=== PATIENT | male | born 1990 | race American Indian/Alaskan Native ===

== ENCOUNTER 2018-11-03 19:18 | Emergency (ER) | payer SELFPAY ==
--- NOTE | 2018-11-03 19:59 | Event Note ---
ED Screening Note Date of service: 11/03/18 Time: 19:55 ED Screening Note: This is a 28 y.o. M. that presents to the ER with pain and intermittent swelling to left ankle. Reports history of fx repair to left ankle in 2005. PMH of HTN no medication. Denies visual changes, palpitations, chest pain, or dizziness. This initial assessment/diagnostic orders/clinical plan/treatment(s) is/are subject to change based on patients health status, clinical progression and re- assessment by fellow clinical providers in the ED. Further treatment and workup at subsequent clinical providers discretion. Patient/guardian urged not to elope from the ED as their condition may be serious if not clinically assessed and managed. Initial orders include: XR left ankle
--- NOTE | 2018-11-03 21:22 | XRay Report ---
LEFT ANKLE 3 VIEWS INDICATION / CLINICAL INFORMATION: Lateral left ankle pain and swelling. COMPARISON: None available. FINDINGS: BONES and JOINT(S): No acute fracture or subluxation. No significant arthritis. Internal fixation of the distal fibula and tibia appears intact and in good position. SOFT TISSUES: Moderate generalized edema is seen along the distal leg and ankle. ADDITIONAL FINDINGS: None. IMPRESSION: Moderate soft tissue swelling of the left ankle without an acute osseous abnormality. Signer Name: uYri Donald MD Signed: 11/03/2018 9:18 PM Workstation Name: [id number]
--- NOTE | 2018-11-03 21:51 | Emergency Department Report ---
ED Extremity Problem HPI - General Chief complaint: Extremity Injury, Lower Stated complaint: LEFT LEG PAIN Time Seen by Provider: 11/03/18 19:54 Source: patient Mode of arrival: Ambulatory Limitations: No Limitations - History of Present Illness Initial comments: Patient is a 28-year-old male who presents to emergency room with complaints of left ankle pain that began a couple weeks ago. States he has noticed some swelling after he is on his feet all day. he describes the pain as an "aching." Patient states that he had ankle fracture approximately 10 years ago and had a screw and plate placement. he denies any new fall or injury at all. Patient states that he works a lot and is constantly on his feet. Denies any numbness or weakness. He has not followed up with an orthopedic doctor. pt was concerned that a screw was out of place. - Related Data Previous Rx's Medication Instructions Recorded Last Taken Type Naproxen [Naprosyn] 500 mg PO BID PRN #20 tablet 11/03/18 Unknown Rx Allergies Allergy/AdvReac Type Severity Reaction Status Date / Time No Known Allergies Allergy Unverified 11/03/18 19:24 ED Review of Systems ROS: Stated complaint: LEFT LEG PAIN Other details as noted in HPI Comment: All other systems reviewed and negative ED Past Medical Hx - Past Medical History Previous Medical History?: Yes Hx Hypertension: Yes Additional medical history: Obesity - Surgical History Past Surgical History?: Yes Additional Surgical History: Left leg hardware - Social History Smoking Status: Never Smoker Substance Use Type: None - Medications Home Medications: Home Medications Medication Instructions Recorded Confirmed Last Taken Type Naproxen [Naprosyn] 500 mg PO BID PRN #20 tablet 11/03/18 Unknown Rx ED Physical Exam - General Limitations: No Limitations General appearance: alert, in no apparent distress - Head Head exam: Present: atraumatic, normocephalic - Eye Eye exam: Present: normal appearance - ENT ENT exam: Present: mucous membranes moist - Extremities Exam Extremities exam: Present: other (no TTP of the left ankle or foot, no obvious deformity, edema present around the ankle, 2+ distal pulses, sensation intact, no obvious joint laxity, FROM of the left ankle, foot, and toes) - Neurological Exam Neurological exam: Present: alert, oriented X3 - Psychiatric Psychiatric exam: Present: normal affect, normal mood - Skin Skin exam: Present: warm, dry, intact ED Course Vital Signs 11/03/18 11/03/18 19:24 21:30 Temperature 97.9 F Pulse Rate 98 H 91 H Respiratory 20 18 Rate Blood Pressure 220/117 Blood Pressure 198/112 [Left] O2 Sat by Pulse 96 98 Oximetry ED Medical Decision Making - Radiology Data Radiology results: report reviewed LEFT ANKLE 3 VIEWS INDICATION / CLINICAL INFORMATION: Lateral left ankle pain and swelling. COMPARISON: None available. FINDINGS: BONES and JOINT(S): No acute fracture or subluxation. No significant arthritis. Internal fixation of the distal fibula and tibia appears intact and in good position. SOFT TISSUES: Moderate generalized edema is seen along the distal leg and ankle. ADDITIONAL FINDINGS: None. IMPRESSION: Moderate soft tissue swelling of the left ankle without an acute osseous abnormality. Signer Name: Yuri Donald MD Signed: 11/03/2018 9:18 PM Workstation Name: [id number] Transcribed By: MARTHA Dictated By: Yuri Donald MD Electronically Authenticated By: Yuri Donald MD Signed Date/Time: 11/03/182117 - Medical Decision Making Patient is a 28-year-old male who presents to emergency room with complaints of left ankle pain that began a couple weeks ago. States he has noticed some swelling after he is on his feet all day. he describes the pain as an "aching." Patient states that he had ankle fracture approximately 10 years ago and had a screw and plate placement. he denies any new fall or injury at all. Patient states that he works a lot and is constantly on his feet. Denies any numbness or weakness. He has not followed up with an orthopedic doctor. pt was concerned that a screw was out of place. on exam: no TTP of the left ankle or foot, no obvious deformity, edema present around the ankle, 2+ distal pulses, sensation intact, no obvious joint laxity, FROM of the left ankle, foot, and toes. XR of the left ankle: Moderate soft tissue swelling of the left ankle without an acute osseous abnormality. Left ankle wrapped with Richy wrap. Given prescription for naproxen. advised patient to please take medication as prescribed as needed. Please use elevation of the leg, ice for 15 minutes at a time, rest,compression. remove irchy wrap at night. follow up with an orthopedic doctor in the next 3-5 days. pts blood pressure is elevated. discussed with pt and he states that he has had elevated blood pressure for "awhile and they tried to start blood pressure medication while he was in residential but he did not take it." he states that he does not want to start a medication. pt is asymptomatic, according to the most uptodate medical literature in asymptomatic patients who present to the ED the blood pressure does not need to be treated in an emergency setting. discussed with pt to please also follow up with a primary care doctor in the next 3 days due to the elevation in your blood pressure. keep a blood pressure log and eat a low sodium diet. discussed with pt the risks associated with high blood pressure including heart damage, kidney damage, stroke, etc. Return to the emergency room for any new or worsening symptoms. - Differential Diagnosis strain, sprain, fx, dislocation, arthritis, hardware issue Critical care attestation.: If time is entered above; I have spent that time in minutes in the direct care of this critically ill patient, excluding procedure time. ED Disposition Clinical Impression: Elevated blood pressure reading Left ankle pain Qualifiers: Chronicity: acute Qualified Code(s): M25.572 - Pain in left ankle and joints of left foot Disposition: DC-01 TO HOME OR SELFCARE Is pt being admited?: No Does the pt Need Aspirin: No Condition: Stable Instructions: Arthralgia (ED), RICE Therapy (ED) Additional Instructions: Please take medication as prescribed as needed. Please use elevation of the leg, ice for 15 minutes at a time, rest,compression. remove richy wrap at night. follow up with an orthopedic doctor in the next 3-5 days. please also follow up with a primary care doctor in the next 3 days due to the elevation in your blood pressure. keep a blood pressure log and eat a low sodium diet. Return to the emergency room for any new or worsening symptoms. Prescriptions: Naproxen [Naprosyn] 500 mg PO BID PRN #20 tablet PRN Reason: pain Referrals: AI MOSELEY MD [Staff Physician] - 3-5 Days [facility] [Provider Group] - 3-5 Days [facility] [Provider Group] - 3-5 Days Time of Disposition: 21:54 Print Language: GU[place]
[2018-11-04 04:22] VITALS: BP 198/112
== END 2018-11-03 22:22 | disposition home or self-care (01) ==
LOC: ED 19:18
DX: M25.572 Pain in left ankle and joints of left foot (principal); I10 Essential (primary) hypertension; Z79.899 Other long term (current) drug therapy